=== PATIENT | female | born 1980 | race Caucasian/White ===

== ENCOUNTER → 2016-09-11 | Outpatient (REF) | payer OTHER | LOC: M SFHCPLAZ 11:50 | PROVIDERS: ATTEND Family Medicine | DX: D22.9 Melanocytic nevi, unspecified (principal) ==

== ENCOUNTER → 2016-09-17 | Outpatient (CLI) | payer OTHER ==
--- NOTE | 2016-09-17 18:30 | REP ---
MRI BRAIN WITHOUT CONTRAST: HISTORY: Left side headache. There are no areas of abnormal signal intensity in the brain. There is no intraparenchymal hemorrhage, infarct, mass or midline shift. The ventricular system is normal in appearance. A tito cisterna magna is present. There is no extracerebral collection. Mucosal thickening is present in the ethmoid and left sphenoid sinuses. IMPRESSION: There is no intracranial lesion. Signed by Patel Dominguez MD 09/17/2016 06:35 P
== END ==
LOC: M RAD 14:09
PROVIDERS: ATTEND Nurse Practitioner Family
DX: R51 Headache (principal)

== ENCOUNTER → 2016-12-31 | Outpatient (CLI) | payer OTHER ==
[2016-12-31 18:12] LABS: BASO % 0.3 % (0.0-1.0); EOS # 0.1 K/mm3 (0.0-0.50); EOS % 0.8 % (0.0-3.0); LARGE UNSTAINED CELL # 0.1 K/mm3 (0.0-0.4); LARGE UNSTAINED CELL % 1.6 % (0.0-4.0); LYMPH # 3.5 K/mm3 (1.5-4.5); LYMPH % 44.3 % (24.0-44.0); MEAN CORPUSCULAR HEMOGLOBIN 29.9 pg (27.0-33.0); MEAN CORPUSCULAR HGB CONC 32.7 g/dl (32.0-36.5); MEAN CORPUSCULAR VOLUME 91.4 fl (80.0-96.0); MONO # 0.3 K/mm3 (0.0-0.8); MONO % 4.2 % (0.0-5.0); NEUTROPHILS # 3.9 K/mm3 (1.8-7.7); NEUTROPHILS % 48.8 % (36.0-66.0); PLATELET COUNT, AUTOMATED 282 k/mm3 (150-450); RED CELL DISTRIBUTION WIDTH 12.4 % (11.5-14.5); WHITE BLOOD COUNT 7.9 K/mm3 (4.0-10.0)
[2017-01-01 11:26] LABS: HBsAg Prenatal NEGATIVE (NEGATIVE)
== END ==
LOC: M LAB 15:05
PROVIDERS: ATTEND Obstetrics & Gynecology
DX: Z36 Encounter for antenatal screening of mother (principal); Z3A.00 Weeks of gestation of pregnancy not specified

== ENCOUNTER → 2017-03-26 | Outpatient (CLI) | payer OTHER ==
--- NOTE | 2017-03-26 22:12 | REP ---
Complete OB ultrasound: 03/26/2017. Clinical history: Supervision of , second trimester anatomy screen. There are no prior studies for this . There is a single intrauterine gestation in variable position with a posterior grade 0 placenta without previa abruption. Visually, the amniotic fluid volume is normal. Cervix 4.1 cm long and closed. biometry: BPD 4.3 cm = 19 weeks HC 15.9 cm = 18 weeks 5 days AC 13.6 cm = 19 weeks FL 3 cm = 19 weeks 3 days HL 3.1 cm = 20 weeks 2 days Average ultrasound age by today's study 19 weeks 2 days, EDC 08/18/2017. By LMP 18 weeks 6 days, EDC 08/21/2017. Measurement ratios were all normal. Estimated weight 277 grams or 9 ounces is 56th percentile for dating based on LMP. This is normal. anatomy screen shows heart rate 139 and regular. Cranial vault, choroid plexus, lateral ventricles, thalami, cavum septum pellucidum, cerebellum and cisterna magna were all unremarkable. Facial profile views, lungs, four-chamber heart view, ventricular outflow tracts and a three-vessel cord were not well evaluated due to position. diaphragm, left-sided stomach bubble and cord insertion were adequately visualized. The kidneys and bladder, transverse and longitudinal views of the spine and the upper lower extremities were all seen. Impression: 1. Single intrauterine gestation in variable position with a posterior grade zero placenta without previa or abruption, visually normal amniotic fluid volume and a 4.1 cm long closed cervix. 2. Average ultrasound age 19 weeks 2 days, by LMP 18 weeks 6 days with EDC 08/21/2017 based on that study. Estimated weight is 56th percentile for LMP and this is normal interval growth. All measurement ratios are normal. 3. No anomalies visible, but the face and profile views, lungs, four-chamber heart, ventricular outflow tracts, and three-vessel cord are not optimally visualized and should be rechecked later in the second trimester. Signed by Efra Angelo MD 03/26/2017 10:39 P
== END ==
LOC: M RAD 16:20
PROVIDERS: ATTEND Obstetrics & Gynecology
DX: Z36 Encounter for antenatal screening of mother (principal); Z3A.19 19 weeks gestation of pregnancy

== ENCOUNTER → 2017-04-12 | Outpatient (CLI) | payer OTHER ==
--- NOTE | 2017-04-12 17:56 | REP ---
OB ULTRASOUND: Real-time sonographic evaluation of the gravid uterus is performed. There is a single living intrauterine gestation with estimated gestational age 21 weeks 2 days with EDC 08/21/2017. Today's measurements indicate appropriate growth. BPD 51 mm = 21 weeks 3 days, at the 55th percentile. HC 188 mm = 21 weeks 0 days, at the 43rd percentile. AC 166 mm = 21 weeks 4 day, at the 57th percentile. Femur length 39 mm = 22 weeks 3 days, at the 79th percentile. HC/AC ratio 1.13 within normal range. Estimated weight 259 grams at the 66th. Cervix is closed measures 4.8 cm in length. heart rate 140 beats per minute. SEEN/GROSSLY UNREMARKABLE Lateral ventricles Yes Posterior fossa Yes Upper lip Yes Four-chamber heart Yes LVOT Yes RVOT Yes Stomach Yes Cord insertion Yes Three vessel cord Yes Kidneys Yes Bladder Yes Spine Yes position: Breach Placenta: Posterior and grade 0 with no previa or abruption. Amniotic fluid: Within normal limits. Signed by Calos Redmond MD 04/13/2017 04:37 P
== END ==
LOC: M RAD 15:41
PROVIDERS: ATTEND Obstetrics & Gynecology
DX: Z36 Encounter for antenatal screening of mother (principal); O32.1XX0 Maternal care for breech presentation, not applicable or unspecified; Z3A.21 21 weeks gestation of pregnancy

== ENCOUNTER → 2017-05-27 | Outpatient (CLI) | payer OTHER ==
[2017-05-27 15:30] LABS: BASO % 0.1 % (0.0-1.0); EOS # 0.1 10^3/uL (0.0-0.50); EOS % 0.9 % (0.0-3.0); IMMATURE GRANULOCYTE % 0.8 % (0-0); LYMPH # 2.4 10^3/uL (1.5-4.5); LYMPH % 23.8 % (24.0-44.0); MEAN CORPUSCULAR HEMOGLOBIN 28.5 pg (27.0-33.0); MEAN CORPUSCULAR HGB CONC 32.4 g/dl (32.0-36.5); MEAN CORPUSCULAR VOLUME 87.9 fl (80.0-96.0); MONO # 0.3 10^3/uL (0.0-0.8); MONO % 3.3 % (0.0-5.0); NEUTROPHILS # 7.3 10^3/uL (1.8-7.7); NEUTROPHILS % 71.1 % (36.0-66.0); PLATELET COUNT, AUTOMATED 230 10^3/uL (150-450); RED CELL DISTRIBUTION WIDTH 13.2 % (11.5-14.5); WHITE BLOOD COUNT 10.2 10^3/uL (4.0-10.0)
== END ==
LOC: M LAB 13:43
PROVIDERS: ATTEND Advanced Practice Midwife
DX: Z36.89 Encounter for other specified antenatal screening (principal); Z3A.00 Weeks of gestation of pregnancy not specified
CPT/HCPCS: 36415; 82950; 85025; 86850; 86900; 86901; J2790

== ENCOUNTER → 2017-07-20 | Outpatient (REF) | payer OTHER | LOC: M LAB REF 17:17 | PROVIDERS: ATTEND Specialist | DX: Z34.83 Encounter for supervision of other normal pregnancy, third trimester (principal) ==

== ENCOUNTER → 2017-07-29 | Outpatient (CLI) | payer OTHER | LOC: M SMT 14:25 | PROVIDERS: ATTEND Advanced Practice Midwife | DX: Z34.83 Encounter for supervision of other normal pregnancy, third trimester (principal) ==

== ENCOUNTER 2017-08-20 09:56 | Inpatient (IN) | payer OTHER ==
[2017-08-20] MEDS ORDERED: LR 1,000 ML IV (10:28)
[2017-08-20] MEDS: LACTATED RINGER'S 1000 ML IV (10:28)
[2017-08-20] MEDS: PENICILLIN G POTASSIUM IV 5 MU in D5W MINI-BAG PLUS 100 ML IV (12:38)
[2017-08-20 12:49] LABS: HEMATOCRIT 36.4 % (36.0-47.0); MEAN CORPUSCULAR HEMOGLOBIN 28.3 pg (27.0-33.0); MEAN CORPUSCULAR VOLUME 85.8 fl (80.0-96.0); PLATELET COUNT, AUTOMATED 217 10^3/uL (150-450); RED BLOOD COUNT 4.24 10^6/uL (4.00-5.40); RED CELL DISTRIBUTION WIDTH 15.2 % (11.5-14.5); WHITE BLOOD COUNT 12.7 10^3/uL (4.0-10.0)
[2017-08-20 13:15] LABS: AMPHETAMINES URINE REFLEX NEGATIVE (NEGATIVE); BARBITURATES URINE REFLEX NEGATIVE (NEGATIVE); BENZODIAZEPINES URINE REFLEX NEGATIVE (NEGATIVE); CANNABINOIDS URINE REFLEX NEGATIVE (NEGATIVE); COCAINE METABOLITE URINE REFLE NEGATIVE (NEGATIVE); METHADONE URINE REFLEX NEGATIVE (NEGATIVE); OPIATES URINE REFLEX NEGATIVE (NEGATIVE); PHENCYCLIDINE URINE REFLEX NEGATIVE (NEGATIVE)
[2017-08-20] MEDS: PENICILLIN G POTASSIUM IV 2.5 MU in APPROPRIATE DILUENT 1 EA IV ×2 (17:45→21:14)
[2017-08-20] MEDS: OXYTOCIN DRIP 30 UNITS in APPROPRIATE DILUENT 1 EA IV (20:04)
[2017-08-20] MEDS ORDERED: FENTANYL 2MCG/ML ROPIVACAINE 0.2% IN 0.9% NACL 200ML IVBAG As Ordered (20:10)
[2017-08-20] MEDS ORDERED: ONDANSETRON 4MG/2ML VIAL (J2405) IV (20:30)
[2017-08-20] MEDS ORDERED: NALOXONE INJ 0.4 MG/1 ML VIAL (J2310) IV (20:30)
[2017-08-20] MEDS ORDERED: EPIDURAL COMMENT XX (20:30)
[2017-08-20] MEDS ORDERED: diphenhydrAMINE INJ 50MG/ML VIAL (J1200) IV (20:30)
[2017-08-20] MEDS ORDERED: REFRIGERATOR IV KEYS XX (20:30)
[2017-08-20] MEDS ORDERED: FENTANYL/ROPIVACAINE/NACL BAG 200 ML EPIDURAL (20:30)
[2017-08-20] MEDS ORDERED: LACTATED RINGER'S 1000 ML IV (20:30)
[2017-08-20] MEDS ORDERED: ePHEDrine SULFATE 25 MG/5 ML(5MG/ML) SYRINGE IV (20:30)
[2017-08-20] MEDS ORDERED: EPIDURAL/PCA KEYS XX (20:30)
[2017-08-21] MEDS ORDERED: MEASLES,MUMPS,RUBELLA VACCINE INJ (MMR-II) (90707) SC
[2017-08-21] MEDS ORDERED: DOCUSATE SODIUM 100 MG CAP PO
[2017-08-21] MEDS ORDERED: MOM 30ML SUSPENSION UDC PO
[2017-08-21] MEDS ORDERED: DIBUCAINE 1% OINTMENT 30GM TOP
[2017-08-21] MEDS ORDERED: ANUSOL HC CREAM 30GM TOP
[2017-08-21] MEDS ORDERED: METHYLERGONOVINE MALEATE 0.2 MG TAB PO
[2017-08-21] MEDS: IBUPROFEN 800 MG TAB PO (02:13)
[2017-08-21] MEDS: PRENATAL VITAMINS CHEWABLE TABLET PO (07:51)
[2017-08-21] MEDS: ACETAMINOPHEN 500 MG TAB PO (07:52)
[2017-08-21 19:12] LABS: FETAL SCREEN PROF. 1 1
[2017-08-22] MEDS: RHOGAM 300 MCG (1500 IU) INJ (J2790) IM (07:26)
[2017-08-22] MEDS: PRENATAL VITAMINS CHEWABLE TABLET PO (08:27)
== END 2017-08-22 15:35 | disposition home or self-care (01) | DRG 560 ==
LOC: M LDO 09:56 → M OBS 08-21 01:42 → M LDI 10:22
PROVIDERS: Advanced Practice Midwife
PROC: 10E0XZZ Delivery of Products of Conception, External Approach (ICD-10-PCS; principal; 2017-08-20)
PROC: 0HQ9XZZ Repair Perineum Skin, External Approach (ICD-10-PCS; 2017-08-20)
PROC: 10907ZC Drainage of Amniotic Fluid, Therapeutic from Products of Conception, Via Natural or Artificial Opening (ICD-10-PCS; 2017-08-20)
DX: O99.824 Streptococcus B carrier state complicating childbirth (principal); Z3A.39 39 weeks gestation of pregnancy; O32.6XX0 Maternal care for compound presentation, not applicable or unspecified; O70.0 First degree perineal laceration during delivery; Z37.0 Single live birth

== ENCOUNTER → 2018-07-27 | Outpatient (REF) | payer OTHER ==
[2018-07-27 18:26] LABS: APPEARANCE, URINE CLEAR (CLEAR); BACTERIA, URINE AUTO NEGATIVE (NEGATIVE); BILIRUBIN, URINE AUTO NEGATIVE (NEGATIVE); BLOOD, URINE BLOOD NEGATIVE (NEGATIVE); COLOR, URINE YELLOW (YELLOW); GLUCOSE, URINE (UA) AUTO NEGATIVE (NEGATIVE); KETONE, URINE AUTO NEGATIVE (NEGATIVE); LEUKOCYTE ESTERASE, URINE AUTO NEGATIVE (NEGATIVE); MUCUS, URINE SMALL (NEGATIVE); NITRITE, URINE AUTO NEGATIVE (NEGATIVE); PROTEIN, URINE AUTO NEGATIVE (NEGATIVE); RBC, URINE AUTO 2 /HPF (0-3); SPECIFIC GRAVITY URINE AUTO 1.015 (1.002-1.035); SQUAMOUS EPITHELIAL CELL UR AU 0 /HPF (0-6); UROBILINOGEN, URINE AUTO 0.2 mg/dL (0.0-2.0); WBC, URINE AUTO 1 /HPF (0-3)
== END ==
LOC: M SFHCPLAZ 17:20
DX: N39.0 Urinary tract infection, site not specified (principal)
CPT/HCPCS: 81001

== ENCOUNTER → 2018-10-06 | Outpatient (CLI) | payer OTHER ==
[~2018-10-06] MED LIST: CALTAB PO; IBUP-1114 PO; MAPA500T2 PO; PRENTAB9 PO; VALT500T PO
[2018-10-06 15:52] LABS: HEMOGLOBIN 12.8 g/dl (12.0-15.5); MEAN CORPUSCULAR HGB CONC 32.8 g/dl (32.0-36.5); MEAN CORPUSCULAR VOLUME 88.4 fl (80.0-96.0); PLATELET COUNT, AUTOMATED 258 10^3/uL (150-450); RED BLOOD COUNT 4.41 10^6/uL (4.00-5.40); WHITE BLOOD COUNT 7.7 10^3/uL (4.0-10.0)
[2018-10-06 16:33] LABS: ALT/SGPT 17 U/L (12-78); BILIRUBIN,TOTAL 0.3 MG/DL (0.2-1.0); BLOOD UREA NITROGEN 13 MG/DL (7-18); CALCIUM LEVEL 8.4 MG/DL (8.5-10.1); CARBON DIOXIDE LEVEL 26 MEQ/L (21-32); CHLORIDE LEVEL 105 MEQ/L (98-107); CHOLESTEROL LEVEL 185 MG/DL (<200); CHOLESTEROL RISK RATIO 4.868 (<5); CREATININE FOR GFR 0.67 MG/DL (0.55-1.30); FREE T4 1.03 NG/DL (0.76-1.46); GLOMERULAR FILTRATION RATE > 60.0 (>60); GLUCOSE, FASTING 88 MG/DL (70-100); HDL CHOLESTEROL 38 MG/DL (>40); LDL CHOLESTEROL 107 MG/DL (<100); NON-HDL-C 147 MG/DL; POTASSIUM SERUM 4.1 MEQ/L (3.5-5.1); SODIUM LEVEL 138 MEQ/L (136-145); TOTAL PROTEIN 7.1 GM/DL (6.4-8.2); TRIGLYCERIDES LEVEL 200 MG/DL (<150)
== END ==
LOC: M LAB 14:33
PROVIDERS: ATTEND Physician Assistant
DX: F32.9 Major depressive disorder, single episode, unspecified (principal); E78.5 Hyperlipidemia, unspecified

== ENCOUNTER → 2019-10-05 | Outpatient (CLI) | payer OTHER ==
[2019-10-05 18:55] LABS: HCG, SERUM QUALITATIVE NEGATIVE (NEGATIVE)
== END ==
LOC: M PLALAB 15:22
PROVIDERS: ATTEND Advanced Practice Midwife
DX: N91.2 Amenorrhea, unspecified (principal)

== ENCOUNTER → 2019-10-26 | Outpatient (CLI) | payer OTHER ==
--- NOTE | 2019-10-26 17:13 | REP ---
Focused left breast sonography: History: Area of breast thickening 1 x 3 cm 6 o'clock position just outside areola on clinician breast exam. No comparison breast imaging. Findings: The left breast is scanned inferiorly in the periareolar region from 4 o'clock to 7 o'clock. Heterogeneous fibroglandular background echotexture is seen. No cyst, mass, acoustic shadowing or architectural distortion is seen. Impression: BIRADS category 1 findings. Clinical follow-up is advised. This patient's estimated Tyrer-Cuzick lifetime risk assessment for the breast cancer is 11.6 %.
== END ==
LOC: M WHC 13:03
PROVIDERS: ATTEND Advanced Practice Midwife
DX: N60.12 Diffuse cystic mastopathy of left breast (principal)

== ENCOUNTER 2020-04-17 17:37 | Emergency (ER) | payer OTHER ==
[~2020-04-17] VITALS: Ht 162.6 cm; Wt 114.2 kg
[2020-04-17 17:38] VITALS: BP 175/94
[2020-04-17 19:01] LABS: BASO % 0.3 % (0.0-1.0); EOS % 0.6 % (0.0-3.0); HEMATOCRIT 40.5 % (36.0-47.0); HEMOGLOBIN 13.3 g/dl (12.0-15.5); LYMPH # 1.6 10^3/uL (1.5-5.0); MEAN CORPUSCULAR HGB CONC 32.8 g/dl (32.0-36.5); MEAN CORPUSCULAR VOLUME 91.2 fl (80.0-96.0); MONO # 0.3 10^3/uL (0.0-0.8); MONO % 4.6 % (0.0-5.0); NEUTROPHILS # 4.5 10^3/uL (1.5-8.5); PLATELET COUNT, AUTOMATED 239 10^3/uL (150-450); RED BLOOD COUNT 4.44 10^6/uL (4.00-5.40); WHITE BLOOD COUNT 6.5 10^3/uL (4.0-10.0)
[2020-04-17 19:12] LABS: BLOOD UREA NITROGEN 10 MG/DL (7-18); C REACTIVE PROTEIN QUANTITATIV 0.52 MG/DL (0.00-0.30); CALCIUM LEVEL 8.6 MG/DL (8.5-10.1); CARBON DIOXIDE LEVEL 31 MEQ/L (21-32); CHLORIDE LEVEL 108 MEQ/L (98-107); CREATININE FOR GFR 0.74 MG/DL (0.55-1.30); GLOMERULAR FILTRATION RATE > 60.0 (>60); GLUCOSE, FASTING 109 MG/DL (70-100); POTASSIUM SERUM 4.3 MEQ/L (3.5-5.1); SODIUM LEVEL 141 MEQ/L (136-145)
[2020-04-17 19:48] LABS: TROPONIN I < 0.02 NG/ML (< 0.10)
[2020-04-19 17:08] LABS: Lyme Disease IgG/IgM Antibodie <0.91 ISR (0.00-0.90); Lyme Disease IgM Ab Quantitati <0.80 index (0.00-0.79)
--- NOTE | 2020-05-01 14:56 | ECGEPIP ---
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
== END 2020-04-17 20:45 | disposition home or self-care (01) ==
LOC: M ED 17:37
DX: R07.89 Other chest pain (principal); R06.02 Shortness of breath; R53.1 Weakness; D17.22 Benign lipomatous neoplasm of skin and subcutaneous tissue of left arm; D17.79 Benign lipomatous neoplasm of other sites; E66.9 Obesity, unspecified; Z68.41 Body mass index [BMI] 40.0-44.9, adult; E28.2 Polycystic ovarian syndrome; F41.9 Anxiety disorder, unspecified; F32.9 Major depressive disorder, single episode, unspecified; M79.7 Fibromyalgia; E78.5 Hyperlipidemia, unspecified

== ENCOUNTER → 2020-12-26 | Outpatient (CLI) | payer OTHER ==
--- NOTE | 2020-12-26 16:49 | REPMRS ---
Patient History The patient states she has not had a clinical breast exam in over a year. No known family history of cancer. No Hormone Replacement Therapy Tomosynthesis is performed. Volpara breast density is B. [facility] lifetime risk of breast cancer 13.0%. Indicated problem(s): bilateral non-bloody discharge Bilateral lump or thickening. Moderna 11/27/20 L arm, 12/23/20 L arm. Patient states bilateral clear/milky discharge x 3 years, bilateral multiple palpable lumps. MRS history sheet signed. Diagnostic Bilateral Mammo: December 26, 2020 - Exam #: [id number] Bilateral CC and MLO view(s) were taken. Technologist: Anne Marie Westbrook, Technologist FINDINGS: There are scattered fibroglandular densities. There has been no change in the appearance of the mammogram from the prior studies. There is a mild amount of residual fibroglandular tissue which is fairly symmetric. There is no interval development of dominant mass, architectural distortion, or clustered microcalcification suggestive of malignancy. Assessment: BI-RADS/ACR category 1 mammogram. Negative Mammogram. Recommendation Routine screening mammogram in 1 year (for women over age 40). This mammogram was interpreted with the aid of an FDA-approved computer-aided dectection system. Electronically Signed By: Calos Redmond MD 12/26/20 [id number]
== END ==
LOC: M WHC 15:03
PROVIDERS: ATTEND Surgery
DX: N63.10 Unspecified lump in the right breast, unspecified quadrant (principal)
CPT/HCPCS: 77066; G0279

== ENCOUNTER 2021-02-28 05:45 | Emergency (ER) | payer OTHER ==
[~2021-02-28] VITALS: Ht 162.6 cm; Wt 114.1 kg
[2021-02-28 05:46] VITALS: BP 143/83
[2021-02-28] MEDS ORDERED: LIDOCAINE VISCOUS 2% SOLN 15ML UDC SSP ONE (06:20)
[2021-02-28] MEDS ORDERED: AUGMENTIN 875 MG TAB PO ONE (06:25)
[2021-02-28] MEDS ORDERED: PERCOCET 5MG/325MG TAB PO ONE (07:00)
[2021-02-28] MEDS ORDERED: PERI0.126 PO (07:09)
[2021-02-28] MEDS ORDERED: AUGM875T28 PO (07:10)
[2021-02-28] MEDS ORDERED: LIDO2SO PO ×2 (07:11→07:13)
[2021-02-28] MEDS ORDERED: PERC5TAB12 PO (07:20)
== END 2021-02-28 07:54 | disposition home or self-care (01) ==
LOC: M ED 05:45
DX: K02.9 Dental caries, unspecified (principal); K08.89 Other specified disorders of teeth and supporting structures; K04.7 Periapical abscess without sinus; Z79.899 Other long term (current) drug therapy

== ENCOUNTER → 2022-04-23 | Outpatient (CLI) | payer OTHER ==
[~2022-04-23] MED LIST changes: +AUGM875T28 PO; +LIDO2SO PO; +PERC5TAB12 PO; +PERI0.126 PO
[2022-04-23 17:47] LABS: BASO # 0.1 10^3/uL (0.0-0.2); BASO % 0.6 % (0.0-1.0); EOS # 0.2 10^3/uL (0.0-0.5); EOS % 2.5 % (0.0-3.0); HEMATOCRIT 42.1 % (36.0-47.0); HEMOGLOBIN 13.6 g/dl (12.0-15.5); LYMPH # 3.2 10^3/uL (1.5-5.0); LYMPH % 37.9 % (24.0-44.0); MEAN CORPUSCULAR HEMOGLOBIN 29.7 pg (27.0-33.0); MEAN CORPUSCULAR HGB CONC 32.3 g/dl (32.0-36.5); MEAN CORPUSCULAR VOLUME 91.9 fl (80.0-96.0); MONO # 0.5 10^3/uL (0.0-0.8); MONO % 5.6 % (2.0-8.0); NEUTROPHILS # 4.5 10^3/uL (1.5-8.5); PLATELET COUNT, AUTOMATED 283 10^3/uL (150-450); RED BLOOD COUNT 4.58 10^6/uL (4.00-5.40); WHITE BLOOD COUNT 8.4 10^3/uL (4.0-10.0)
[2022-04-23 18:57] LABS: ALBUMIN 3.6 GM/DL (3.2-5.2); ALT/SGPT 25 U/L (12-78); BILIRUBIN,TOTAL 0.3 MG/DL (0.2-1.0); BLOOD UREA NITROGEN 16 MG/DL (7-18); CALCIUM LEVEL 9.1 MG/DL (8.5-10.1); CARBON DIOXIDE LEVEL 29 MEQ/L (21-32); CHLORIDE LEVEL 106 MEQ/L (98-107); CHOLESTEROL LEVEL 183 MG/DL (<200); CHOLESTEROL RISK RATIO 4.575 (<5); GLOMERULAR FILTRATION RATE > 60.0 (>60); GLUCOSE, FASTING 93 MG/DL (70-100); HDL CHOLESTEROL 40 MG/DL (>40); LDL CHOLESTEROL 111 MG/DL (<100); NON-HDL-C 143 MG/DL; POTASSIUM SERUM 4.5 MEQ/L (3.5-5.1); SODIUM LEVEL 140 MEQ/L (136-145); TOTAL PROTEIN 6.7 GM/DL (6.4-8.2); TRIGLYCERIDES LEVEL 158 MG/DL (<150)
[2022-04-23 19:27] LABS: HEMOGLOBIN A1c 5.3 %
== END ==
LOC: M LAB 16:40
PROVIDERS: ATTEND Nurse Practitioner Family
DX: Z00.00 Encounter for general adult medical examination without abnormal findings (principal); E28.2 Polycystic ovarian syndrome; E78.5 Hyperlipidemia, unspecified

== ENCOUNTER → 2022-09-16 | Outpatient (REF) | payer OTHER | LOC: M SFHCDERM 17:09 | PROVIDERS: ATTEND Physician Assistant | DX: D22.61 Melanocytic nevi of right upper limb, including shoulder (principal); D22.5 Melanocytic nevi of trunk ==

== ENCOUNTER 2022-11-12 10:25 | Emergency (ER) | payer OTHER ==
[~2022-11-12] VITALS: Ht 162.6 cm; Wt 93.2 kg
[2022-11-12 11:49] LABS: BASO # 0.1 10^3/uL (0.0-0.2); BASO % 0.6 % (0.0-1.0); EOS # 0.1 10^3/uL (0.0-0.5); EOS % 1.3 % (0.0-3.0); HEMATOCRIT 41.3 % (36.0-47.0); HEMOGLOBIN 13.7 g/dl (12.0-15.5); LYMPH # 3.5 10^3/uL (1.5-5.0); LYMPH % 38.8 % (24.0-44.0); MEAN CORPUSCULAR HEMOGLOBIN 29.7 pg (27.0-33.0); MEAN CORPUSCULAR HGB CONC 33.2 g/dl (32.0-36.5); MEAN CORPUSCULAR VOLUME 89.6 fl (80.0-96.0); MONO # 0.5 10^3/uL (0.0-0.8); MONO % 5.9 % (2.0-8.0); NEUTROPHILS # 4.8 10^3/uL (1.5-8.5); NEUTROPHILS % 53.1 % (36.0-66.0); PLATELET COUNT, AUTOMATED 272 10^3/uL (150-450); RED BLOOD COUNT 4.61 10^6/uL (4.00-5.40)
[2022-11-12 12:09] LABS: HCG, SERUM QUALITATIVE NEGATIVE (NEGATIVE)
[2022-11-12 12:11] LABS: ALBUMIN 3.8 G/DL (3.2-5.2); ALKALINE PHOSPHATASE 50 U/L (46-116); ALT/SGPT 15 U/L (7.0-40); AST/SGOT 11 U/L (<34); BILIRUBIN,DIRECT 0.1 MG/DL (<0.4); BILIRUBIN,TOTAL 0.6 MG/DL (0.3-1.2); BLOOD UREA NITROGEN 10 MG/DL (9-23); CARBON DIOXIDE LEVEL 26 MMOL/L (20-31); CHLORIDE LEVEL 103 MMOL/L (98-107); CREATININE FOR GFR 0.71 MG/DL (0.55-1.30); GLOMERULAR FILTRATION RATE > 60.0 (>58); GLUCOSE, FASTING 89 MG/DL (60-100); POTASSIUM SERUM 3.9 MMOL/L (3.5-5.1); SODIUM LEVEL 138 MMOL/L (136-145); TOTAL PROTEIN 6.5 G/DL (5.7-8.2)
[2022-11-12] MEDS ORDERED: KETOROLAC 30 MG/ML 1ML VIAL IV ONE (14:55)
[2022-11-12 17:29] VITALS: BP 143/73
== END 2022-11-12 17:39 | disposition left against medical advice (07) ==
LOC: M ED 10:25
DX: R10.31 Right lower quadrant pain (principal); E28.2 Polycystic ovarian syndrome

== ENCOUNTER 2022-12-16 17:31 | Emergency (ER) | payer OTHER ==
[~2022-12-16] VITALS: Ht 162.6 cm; Wt 91.6 kg
[~2022-12-16 17:31] MED LIST changes: +LIDO15SO2 PO; -LIDO2SO PO
[2022-12-16 17:34] VITALS: BP 131/61
[2022-12-16 18:43] LABS: BASO % 0.4 % (0.0-1.0); EOS # 0.1 10^3/uL (0.0-0.5); EOS % 1.6 % (0.0-3.0); HEMATOCRIT 41.3 % (36.0-47.0); HEMOGLOBIN 13.4 g/dl (12.0-15.5); LYMPH % 35.5 % (24.0-44.0); MEAN CORPUSCULAR HEMOGLOBIN 29.5 pg (27.0-33.0); MEAN CORPUSCULAR HGB CONC 32.4 g/dl (32.0-36.5); MEAN CORPUSCULAR VOLUME 90.8 fl (80.0-96.0); MONO # 0.5 10^3/uL (0.0-0.8); MONO % 5.6 % (2.0-8.0); NEUTROPHILS # 4.7 10^3/uL (1.5-8.5); NEUTROPHILS % 56.5 % (36.0-66.0); PLATELET COUNT, AUTOMATED 239 10^3/uL (150-450); RED BLOOD COUNT 4.55 10^6/uL (4.00-5.40); WHITE BLOOD COUNT 8.3 10^3/uL (4.0-10.0)
[2022-12-16 19:03] LABS: HCG, SERUM QUALITATIVE NEGATIVE (NEGATIVE); LIPASE 34 U/L (12-53)
[2022-12-16 19:05] LABS: ALBUMIN 3.7 G/DL (3.2-5.2); ALKALINE PHOSPHATASE 57 U/L (46-116); ALT/SGPT 18 U/L (7.0-40); AST/SGOT 13 U/L (<34); BILIRUBIN,DIRECT < 0.1 MG/DL (<0.4); BILIRUBIN,TOTAL 0.3 MG/DL (0.3-1.2); BLOOD UREA NITROGEN 11 MG/DL (9-23); CALCIUM LEVEL 9.4 MG/DL (8.5-10.1); CARBON DIOXIDE LEVEL 28 MMOL/L (20-31); CHLORIDE LEVEL 105 MMOL/L (98-107); CREATININE FOR GFR 0.67 MG/DL (0.55-1.30); GLOMERULAR FILTRATION RATE > 60.0 (>58); GLUCOSE, FASTING 105 MG/DL (60-100); POTASSIUM SERUM 3.5 MMOL/L (3.5-5.1); SODIUM LEVEL 139 MMOL/L (136-145); TOTAL PROTEIN 6.6 G/DL (5.7-8.2)
[2022-12-16] MEDS ORDERED: ISOVUE-370 76% 100ML VIAL As Ordered ONE (21:25)
[2022-12-16 21:35] LABS: BASO # 0.1 10^3/uL (0.0-0.2); BASO % 0.6 % (0.0-1.0); EOS # 0.1 10^3/uL (0.0-0.5); EOS % 1.7 % (0.0-3.0); HEMOGLOBIN 13.7 g/dl (12.0-15.5); LYMPH # 2.8 10^3/uL (1.5-5.0); LYMPH % 36.4 % (24.0-44.0); MEAN CORPUSCULAR HEMOGLOBIN 29.7 pg (27.0-33.0); MEAN CORPUSCULAR HGB CONC 32.6 g/dl (32.0-36.5); MEAN CORPUSCULAR VOLUME 91.1 fl (80.0-96.0); MONO # 0.5 10^3/uL (0.0-0.8); MONO % 6.7 % (2.0-8.0); NEUTROPHILS # 4.2 10^3/uL (1.5-8.5); NEUTROPHILS % 54.3 % (36.0-66.0); PLATELET COUNT, AUTOMATED 241 10^3/uL (150-450); RED BLOOD COUNT 4.61 10^6/uL (4.00-5.40); WHITE BLOOD COUNT 7.7 10^3/uL (4.0-10.0)
[2022-12-16 21:37] LABS: URINE PREG TEST NEGATIVE (NEGATIVE)
[2022-12-16 21:51] LABS: LIPASE 37 U/L (12-53)
[2022-12-16 21:54] LABS: ALBUMIN 3.7 G/DL (3.2-5.2); ALKALINE PHOSPHATASE 67 U/L (46-116); ALT/SGPT 21 U/L (7.0-40); AST/SGOT 13 U/L (<34); BILIRUBIN,DIRECT < 0.1 MG/DL (<0.4); BILIRUBIN,TOTAL 0.2 MG/DL (0.3-1.2); TOTAL PROTEIN 6.5 G/DL (5.7-8.2)
[2022-12-17] MEDS ORDERED: IBUP-1022 PO (00:51)
== END 2022-12-17 01:35 | disposition home or self-care (01) ==
LOC: M ED 17:31
DX: N83.00 Follicular cyst of ovary, unspecified side (principal); R10.9 Unspecified abdominal pain; R51.9 Headache, unspecified; R20.2 Paresthesia of skin; M79.7 Fibromyalgia
CPT/HCPCS: 36415; 70450; 74177; 76856; 80047; 80048; 80076; 81001; 83690; 84703; 85025; 93976; 99284; Q9967

== ENCOUNTER → 2023-02-15 | Outpatient (CLI) | payer OTHER ==
[~2023-02-15] MED LIST changes: +IBUP-1022 PO
[2023-02-15 18:34] LABS: BASO # 0.1 10^3/uL (0.0-0.2); BASO % 0.7 % (0.0-1.0); EOS # 0.1 10^3/uL (0.0-0.5); EOS % 1.2 % (0.0-3.0); HEMATOCRIT 41.8 % (36.0-47.0); HEMOGLOBIN 13.6 g/dl (12.0-15.5); LYMPH # 2.9 10^3/uL (1.5-5.0); LYMPH % 40.2 % (24.0-44.0); MEAN CORPUSCULAR HEMOGLOBIN 30.1 pg (27.0-33.0); MEAN CORPUSCULAR HGB CONC 32.5 g/dl (32.0-36.5); MEAN CORPUSCULAR VOLUME 92.5 fl (80.0-96.0); MONO # 0.4 10^3/uL (0.0-0.8); MONO % 5.2 % (2.0-8.0); NEUTROPHILS # 3.8 10^3/uL (1.5-8.5); NEUTROPHILS % 52.4 % (36.0-66.0); PLATELET COUNT, AUTOMATED 259 10^3/uL (150-450); RED BLOOD COUNT 4.52 10^6/uL (4.00-5.40); WHITE BLOOD COUNT 7.2 10^3/uL (4.0-10.0)
[2023-02-15 19:01] LABS: ALBUMIN 3.9 G/DL (3.2-5.2); ALKALINE PHOSPHATASE 55 U/L (46-116); ALT/SGPT 21 U/L (7.0-40); AST/SGOT 10 U/L (<34); BILIRUBIN,TOTAL 0.5 MG/DL (0.3-1.2); BLOOD UREA NITROGEN 18 MG/DL (9-23); CALCIUM LEVEL 8.8 MG/DL (8.5-10.1); CARBON DIOXIDE LEVEL 28 MMOL/L (20-31); CHLORIDE LEVEL 102 MMOL/L (98-107); CK-MB VALUE MASS < 1.0 NG/ML (<3.6); CPK CREATINE PHOSPHOKINASE 42 U/L (34-145); CREATININE FOR GFR 0.75 MG/DL (0.55-1.30); GLOMERULAR FILTRATION RATE > 60.0 (>58); GLUCOSE, FASTING 77 MG/DL (60-100); MB/CK RELATIVE INDEX 2.38 (< OR =4); POTASSIUM SERUM 3.9 MMOL/L (3.5-5.1); SODIUM LEVEL 138 MMOL/L (136-145); THYROID STIMULATING HORMONE 1.815 uIU/ML (0.55-4.78); TOTAL PROTEIN 6.7 G/DL (5.7-8.2)
== END ==
LOC: M RAD 16:24
PROVIDERS: ATTEND Nurse Practitioner Family
DX: M54.12 Radiculopathy, cervical region (principal)

== ENCOUNTER → 2023-02-17 | Outpatient (CLI) | payer OTHER | LOC: M RAD 15:47 | PROVIDERS: ATTEND Nurse Practitioner Family | DX: R42 Dizziness and giddiness (principal) ==

== ENCOUNTER → 2023-06-17 | Outpatient (CLI) | payer OTHER | LOC: M WHC 13:32 | PROVIDERS: ATTEND Advanced Practice Midwife | DX: Z12.31 Encounter for screening mammogram for malignant neoplasm of breast (principal) ==

== ENCOUNTER → 2023-06-17 | Outpatient (REF) | payer OTHER | LOC: M PLALAB 15:15 | PROVIDERS: ATTEND Advanced Practice Midwife | DX: Z12.4 Encounter for screening for malignant neoplasm of cervix (principal) ==

== ENCOUNTER → 2023-09-29 | Outpatient (CLI) | payer OTHER ==
[2023-09-29 15:39] LABS: BASO # 0.1 10^3/uL (0.0-0.2); BASO % 0.5 % (0.0-1.0); EOS # 0.1 10^3/uL (0.0-0.5); EOS % 1.3 % (0.0-3.0); HEMATOCRIT 41.1 % (36.0-47.0); HEMOGLOBIN 13.2 g/dl (12.0-15.5); LYMPH # 3.2 10^3/uL (1.5-5.0); LYMPH % 34.1 % (24.0-44.0); MEAN CORPUSCULAR HEMOGLOBIN 30.1 pg (27.0-33.0); MEAN CORPUSCULAR HGB CONC 32.1 g/dl (32.0-36.5); MEAN CORPUSCULAR VOLUME 93.8 fl (80.0-96.0); MONO # 0.7 10^3/uL (0.0-0.8); MONO % 7.5 % (2.0-8.0); NEUTROPHILS # 5.3 10^3/uL (1.5-8.5); NEUTROPHILS % 56.3 % (36.0-66.0); PLATELET COUNT, AUTOMATED 266 10^3/uL (150-450); RED BLOOD COUNT 4.38 10^6/uL (4.00-5.40); WHITE BLOOD COUNT 9.4 10^3/uL (4.0-10.0)
[2023-09-29 16:10] LABS: ALBUMIN 3.8 G/DL (3.2-5.2); ALKALINE PHOSPHATASE 63 U/L (46-116); ALT/SGPT 16 U/L (7.0-40); AST/SGOT 11 U/L (<34); BILIRUBIN,TOTAL 0.3 MG/DL (0.3-1.2); BLOOD UREA NITROGEN 21 MG/DL (9-23); CARBON DIOXIDE LEVEL 29 MMOL/L (20-31); CHLORIDE LEVEL 106 MMOL/L (98-107); CHOLESTEROL LEVEL 200 MG/DL (<200); CHOLESTEROL RISK RATIO 4.34 (<5); CK-MB VALUE MASS < 1.0 NG/ML (<3.6); CREATININE FOR GFR 0.78 MG/DL (0.55-1.30); GLOMERULAR FILTRATION RATE > 60.0 (>58); GLUCOSE, FASTING 90 MG/DL (60-100); LDL CHOLESTEROL 114.6 MG/DL (<100); POTASSIUM SERUM 4.6 MMOL/L (3.5-5.1); SODIUM LEVEL 141 MMOL/L (136-145); THYROID STIMULATING HORMONE 2.326 uIU/ML (0.55-4.78); TOTAL PROTEIN 6.8 G/DL (5.7-8.2); TRIGLYCERIDES LEVEL 197 MG/DL (<150)
[2023-09-29 16:12] LABS: FREE T4 1.18 NG/DL (0.89-1.76)
[2023-09-29 16:49] LABS: HIV 1&2 SCREEN NEGATIVE (NEGATIVE)
[2023-09-29 16:51] LABS: CPK CREATINE PHOSPHOKINASE 94 U/L (34-145); MB/CK RELATIVE INDEX 1.06 (< OR =4); TOTAL 25(OH) VITAMIN D > 150.0 NG/ML (20.0-100.0)
[2023-09-29 20:14] LABS: CHLAMYDIA DNA AMPLIFICATION NEGATIVE (NEGATIVE); GC DNA AMPLIFICATION NEGATIVE (NEGATIVE)
== END ==
LOC: M PLALAB 12:13
PROVIDERS: ATTEND Nurse Practitioner Family
DX: Z11.3 Encounter for screening for infections with a predominantly sexual mode of transmission (principal)

== ENCOUNTER → 2023-11-24 | Outpatient (CLI) | payer OTHER ==
[~2023-11-24] MED LIST changes: -LIDO15SO2 PO; +LIDO15SO9 PO
[2023-11-24 18:43] LABS: HEPATITIS B SURFACE ANTIBODY NEGATIVE (POSITIVE)
[2023-11-24 19:08] LABS: HIV 1&2 SCREEN NEGATIVE (NEGATIVE)
[2023-11-24 19:16] LABS: HEPATITIS C VIRUS ABY INDEX < 0.02 INDEX (<0.8)
== END ==
LOC: M PLALAB 15:26
PROVIDERS: ATTEND Internal Medicine Infectious Disease
DX: Z20.6 Contact with and (suspected) exposure to human immunodeficiency virus [HIV] (principal); Z11.59 Encounter for screening for other viral diseases

== ENCOUNTER 2023-12-23 13:00 | Inpatient (IN) | payer MEDICAID, OTHER ==
[~2023-12-23] VITALS: Ht 163.8 cm; Wt 100.1 kg
[2023-12-23 14:09] LABS: HEMATOCRIT 41.4 % (36.0-47.0); HEMOGLOBIN 13.8 g/dl (12.0-15.5); MEAN CORPUSCULAR HEMOGLOBIN 30.6 pg (27.0-33.0); MEAN CORPUSCULAR HGB CONC 33.3 g/dl (32.0-36.5); MEAN CORPUSCULAR VOLUME 91.8 fl (80.0-96.0); PLATELET COUNT, AUTOMATED 271 10^3/uL (150-450); RED BLOOD COUNT 4.51 10^6/uL (4.00-5.40); WHITE BLOOD COUNT 10.3 10^3/uL (4.0-10.0)
[2023-12-23 14:38] LABS: AMPHETAMINES LEVEL URINE NEGATIVE (NEGATIVE); BARBITURATES URINE NEGATIVE (NEGATIVE); BENZODIAZEPINES URINE NEGATIVE (NEGATIVE); CANNABINOIDS URINE NEGATIVE (NEGATIVE); COCAINE METABOLITE URINE NEGATIVE (NEGATIVE); METHADONE URINE NEGATIVE (NEGATIVE); OPIATES URINE NEGATIVE (NEGATIVE); PHENCYCLIDINE URINE NEGATIVE (NEGATIVE)
[2023-12-23 14:41] LABS: ETHYL ALCOHOL (ETHANOL) < 0.003 % (0.000-0.010)
[2023-12-23 14:42] LABS: SALICYLATE LEVEL < 3.0 MG/DL (<30)
[2023-12-23 14:43] LABS: ALKALINE PHOSPHATASE 65 U/L (46-116); ALT/SGPT 20 U/L (7.0-40); AST/SGOT 14 U/L (<34); BILIRUBIN,DIRECT 0.1 MG/DL (<0.4); BILIRUBIN,TOTAL 0.4 MG/DL (0.3-1.2); BLOOD UREA NITROGEN 13 MG/DL (9-23); CARBON DIOXIDE LEVEL 28 MMOL/L (20-31); CHLORIDE LEVEL 103 MMOL/L (98-107); CREATININE FOR GFR 0.74 MG/DL (0.55-1.30); GLOMERULAR FILTRATION RATE > 60.0 (>58); GLUCOSE, FASTING 101 MG/DL (60-100); POTASSIUM SERUM 4.1 MMOL/L (3.5-5.1); SODIUM LEVEL 139 MMOL/L (136-145)
[2023-12-23 14:44] LABS: THYROID STIMULATING HORMONE 1.738 uIU/ML (0.55-4.78)
[2023-12-23 14:55] LABS: HCG, SERUM QUALITATIVE NEGATIVE (NEGATIVE)
[2023-12-23] MEDS ORDERED: MOM 30ML SUSPENSION UDC PO PRN (15:40)
[2023-12-23] MEDS ORDERED: ACETAMINOPHEN TAB 650MG DOSE (2X325MG) PO PRN (15:40)
[2023-12-23] MEDS ORDERED: diphenhydrAMINE 25MG CAP PO PRN (15:40)
[2023-12-23] MEDS ORDERED: MAALOX 30 ML SUSP *UDC PO PRN (15:40)
[2023-12-23] MEDS ORDERED: LORazepam 1 MG TAB PO PRN (15:40)
[2023-12-23] MEDS ORDERED: traZODone 50 MG TAB PO PRN (15:40)
[2023-12-23] MEDS ORDERED: OLANZapine ORAL DISINTEGRATING TAB 5MG PO PRN (15:40)
[2023-12-23] MEDS ORDERED: MAG100TA PO (16:43)
[2023-12-23] MEDS ORDERED: K2 P1TAB PO (16:43)
[2023-12-23] MEDS ORDERED: [UNRECOGNIZED DRUG - CODE] IM (16:43)
[2023-12-23] MEDS ORDERED: OYST1TAB PO (16:43)
[2023-12-23] MEDS ORDERED: GNP625TA PO (16:43)
[2023-12-23] MEDS ORDERED: ADVI200C18 PO (16:43)
[2023-12-23] MEDS ORDERED: CLIN1LOT TOP (16:43)
[2023-12-23] MEDS ORDERED: HOME MED LIST COMPLETE! XX SCH (16:45)
[2023-12-23 20:22] VITALS: BP 149/73; TEMP 98.7; O2SAT 100
[2023-12-24 06:26] VITALS: BP 136/87; TEMP 98
[2023-12-24 09:50] VITALS: BP 136/73; TEMP 97.7; O2SAT 100
[2023-12-24] MEDS: FLUoxetine 20MG CAP PO SCH (11:19)
[2023-12-24 16:04] VITALS: BP 134/71; TEMP 98.3; O2SAT 100
[2023-12-24] MEDS: OLANZapine 5 MG TAB PO SCH (21:00)
[2023-12-25 06:25] VITALS: BP 139/80; TEMP 97.6; O2SAT 98
[2023-12-25 15:36] VITALS: BP 132/77; TEMP 97.9; O2SAT 98
[2023-12-26 06:22] VITALS: BP 143/85; TEMP 97.4; O2SAT 99
[2023-12-26 15:35] VITALS: BP 118/64; TEMP 97.3; O2SAT 99
[2023-12-27 06:49] VITALS: BP 133/68; TEMP 97.1; O2SAT 99
[2023-12-27 18:00] VITALS: BP 128/72; TEMP 98.5; O2SAT 100
[2023-12-27] MEDS: IBUPROFEN 400MG TAB PO PRN (19:21)
[2023-12-28 06:26] VITALS: BP 135/67; TEMP 97.2; O2SAT 98
[2023-12-28] MEDS ORDERED: FLUO20CA22 PO (13:24)
== END 2023-12-28 16:05 | disposition home or self-care (01) | DRG 760 ==
LOC: M ED 13:00 → M ED INP 15:37 → M PSY 20:12
PROVIDERS: ADMIT Student in an Organized Health Care Education/Training Program; ATTEND Student in an Organized Health Care Education/Training Program
DX: F22 Delusional disorders (principal); F32.9 Major depressive disorder, single episode, unspecified; Z79.899 Other long term (current) drug therapy; Z63.0 Problems in relationship with spouse or partner; E28.2 Polycystic ovarian syndrome; M79.7 Fibromyalgia; E78.5 Hyperlipidemia, unspecified

== ENCOUNTER → 2024-02-28 | Outpatient (CLI) | payer MEDICAID, OTHER ==
[~2024-02-28] MED LIST changes: +ADVI200C18 PO; +CLIN1LOT TOP; +FLUO-365 PO; +GNP625TA PO; +K2 P1TAB PO; +MAG100TA PO; +OYST1TAB PO; +[UNRECOGNIZED DRUG - CODE] IM
== END ==
LOC: M WUC 14:17
PROVIDERS: ATTEND Internal Medicine Infectious Disease
DX: Z29.81 Encounter for HIV pre-exposure prophylaxis (principal)

== ENCOUNTER → 2024-08-11 | Outpatient (CLI) | payer OTHER ==
[2024-08-11 17:56] LABS: HEMATOCRIT 39.8 % (36.0-47.0); MEAN CORPUSCULAR HEMOGLOBIN 29.4 pg (27.0-33.0); MEAN CORPUSCULAR HGB CONC 32.7 g/dl (32.0-36.5); PLATELET COUNT, AUTOMATED 266 10^3/uL (150-450); RED BLOOD COUNT 4.42 10^6/uL (4.00-5.40); WHITE BLOOD COUNT 10.1 10^3/uL (4.0-10.0)
[2024-08-11 18:27] LABS: HIV 1&2 SCREEN NEGATIVE (NEGATIVE)
[2024-08-11 18:34] LABS: HEPATITIS C VIRUS ABY INDEX 0.03 INDEX (<0.8)
[2024-08-11 19:16] LABS: GC DNA AMPLIFICATION NEGATIVE (NEGATIVE)
== END ==
LOC: M PLALAB 15:04
PROVIDERS: ATTEND Specialist
DX: Z34.81 Encounter for supervision of other normal pregnancy, first trimester (principal)

== ENCOUNTER → 2024-08-11 | Outpatient (CLI) | payer OTHER ==
[2024-08-11 17:57] LABS: BASO # 0.1 10^3/uL (0.0-0.2); BASO % 0.6 % (0.0-1.0); EOS # 0.1 10^3/uL (0.0-0.5); EOS % 1.1 % (0.0-3.0); HEMATOCRIT 39.9 % (36.0-47.0); HEMOGLOBIN 12.8 g/dl (12.0-15.5); LYMPH # 2.9 10^3/uL (1.5-5.0); LYMPH % 28.8 % (24.0-44.0); MEAN CORPUSCULAR HEMOGLOBIN 28.7 pg (27.0-33.0); MEAN CORPUSCULAR HGB CONC 32.1 g/dl (32.0-36.5); MEAN CORPUSCULAR VOLUME 89.5 fl (80.0-96.0); MONO # 0.6 10^3/uL (0.0-0.8); MONO % 5.8 % (2.0-8.0); NEUTROPHILS # 6.3 10^3/uL (1.5-8.5); NEUTROPHILS % 63.2 % (36.0-66.0); PLATELET COUNT, AUTOMATED 268 10^3/uL (150-450); RED BLOOD COUNT 4.46 10^6/uL (4.00-5.40)
[2024-08-11 17:58] LABS: ALBUMIN 3.5 G/DL (3.2-5.2); ALKALINE PHOSPHATASE 70 U/L (35-104); ALT/SGPT 18 U/L (7.0-40); AST/SGOT 11 U/L (<34); BILIRUBIN,TOTAL 0.4 MG/DL (0.3-1.2); BLOOD UREA NITROGEN 8 MG/DL (9-23); CALCIUM LEVEL 9.5 MG/DL (8.5-10.1); CARBON DIOXIDE LEVEL 27 MMOL/L (20-31); CHLORIDE LEVEL 103 MMOL/L (98-107); CHOLESTEROL LEVEL 179 MG/DL (<200); CHOLESTEROL RISK RATIO 3.76 (<5); CREATININE FOR GFR 0.61 MG/DL (0.55-1.30); GLOMERULAR FILTRATION RATE > 60.0 (>58); GLUCOSE, FASTING 107 MG/DL (60-100); HDL CHOLESTEROL 47.6 MG/DL (>40); LDL CHOLESTEROL 100.4 MG/DL (<100); NON-HDL-C 131.4 MG/DL; POTASSIUM SERUM 3.5 MMOL/L (3.5-5.1); SODIUM LEVEL 141 MMOL/L (136-145); TOTAL PROTEIN 7.1 G/DL (5.7-8.2); TRIGLYCERIDES LEVEL 155 MG/DL (<150)
[2024-08-11 18:00] LABS: FREE T4 1.22 NG/DL (0.89-1.76); THYROID STIMULATING HORMONE 1.366 uIU/ML (0.55-4.78)
== END ==
LOC: M PLALAB 15:08 → M PLAIMG 15:08
PROVIDERS: ATTEND Nurse Practitioner Family
DX: R53.83 Other fatigue (principal); E78.5 Hyperlipidemia, unspecified; E55.9 Vitamin D deficiency, unspecified

== ENCOUNTER 2024-08-24 12:29 | Day surgery (SDC) | payer OTHER ==
[~2024-08-24] VITALS: Ht 162.6 cm; Wt 104.3 kg
[~2024-08-24 12:29] MED LIST changes: +ACETAMINOPHEN 1000MG/100ML IV BAG As Ordered ONE; +KETOROLAC 60MG 2ML VIAL As Ordered ONE; +LIDOCAINE 2% 100MG/5ML SDV (FOR ANES.) As Ordered ONE; +MIDAZOLAM INJ 2MG/2ML VIAL As Ordered ONE; +ONDANSETRON 4MG 2ML VIAL As Ordered ONE; +PHENYLephrine 500MCG 5ML (100MCG/ML) SYRINGE As Ordered ONE; +dexmedeTOMIDine (4MCG/ML)200MCG/50ML BTL (PRECEDEX) As Ordered ONE; +ePHEDrine SULFATE 25 MG/5 ML(5MG/ML) SYRINGE As Ordered ONE; +fentaNYL 100 MCG/2 ML INJECTION As Ordered ONE; +propofoL 200 MG/20 ML VIAL As Ordered ONE
[2024-08-24] MEDS ORDERED: NS (Normal Saline) 0.9% 1,000 ML IV SCH (12:40)
[2024-08-24] MEDS: LIDOCAINE 1% MDV 20ML VIAL As Ordered ONE (14:45)
[2024-08-24] MEDS: DOXYCYCLINE HYCLATE 100MG TABLET PO ONE (15:39)
[2024-08-24 15:57] VITALS: BP 142/76; TEMP 97.9; O2SAT 97
== END 2024-08-24 16:33 | disposition home or self-care (01) ==
LOC: M SDC 12:29
PROVIDERS: ATTEND Specialist
DX: O02.1 Missed abortion (principal); E28.2 Polycystic ovarian syndrome
CPT/HCPCS: 36415; 59820; 84702; 86850; 86900; 86901; 88305; J0131; J1100; J1885; J2250; J2371; J2405; J3010

== ENCOUNTER → 2024-09-14 | Outpatient (REF) | payer OTHER ==
[~2024-09-14] MED LIST changes: -ACETAMINOPHEN 1000MG/100ML IV BAG As Ordered ONE; -KETOROLAC 60MG 2ML VIAL As Ordered ONE; -LIDOCAINE 2% 100MG/5ML SDV (FOR ANES.) As Ordered ONE; -MIDAZOLAM INJ 2MG/2ML VIAL As Ordered ONE; -ONDANSETRON 4MG 2ML VIAL As Ordered ONE; -PHENYLephrine 500MCG 5ML (100MCG/ML) SYRINGE As Ordered ONE; -dexmedeTOMIDine (4MCG/ML)200MCG/50ML BTL (PRECEDEX) As Ordered ONE; -ePHEDrine SULFATE 25 MG/5 ML(5MG/ML) SYRINGE As Ordered ONE; -fentaNYL 100 MCG/2 ML INJECTION As Ordered ONE; -propofoL 200 MG/20 ML VIAL As Ordered ONE
== END ==
LOC: M SFHCPLAZ 17:15
PROVIDERS: ATTEND Specialist
DX: N92.6 Irregular menstruation, unspecified (principal)

== ENCOUNTER → 2025-01-17 | Outpatient (CLI) | payer OTHER ==
[2025-01-17 17:52] LABS: HCG, SERUM QUANTITATIVE < 2.6 MIU/ML (<4.2)
[2025-01-17 18:06] LABS: HEPATITIS B SURFACE ANTIGEN NEGATIVE (NEGATIVE)
[2025-01-17 18:18] LABS: HIV 1&2 SCREEN NEGATIVE (NEGATIVE)
[2025-01-17 18:26] LABS: HEPATITIS C VIRUS ABY INDEX 0.05 INDEX (<0.8)
[2025-01-19 13:07] LABS: HPV APTIMA Not Detected (Not Detected)
== END ==
LOC: M PLALAB 14:36
PROVIDERS: ATTEND Advanced Practice Midwife
DX: Z12.4 Encounter for screening for malignant neoplasm of cervix (principal)

== ENCOUNTER → 2025-01-17 | Outpatient (CLI) | payer OTHER | LOC: M WHC 13:22 | PROVIDERS: ATTEND Advanced Practice Midwife | DX: Z12.31 Encounter for screening mammogram for malignant neoplasm of breast (principal) ==

== ENCOUNTER → 2025-01-17 | Outpatient (CLI) | payer OTHER ==
[2025-01-17 17:28] LABS: BASO % 0.5 % (0.0-1.0); EOS # 0.1 10^3/uL (0.0-0.5); EOS % 0.6 % (0.0-3.0); HEMATOCRIT 39.4 % (36.0-47.0); HEMOGLOBIN 12.9 g/dl (12.0-15.5); LYMPH # 2.5 10^3/uL (1.5-5.0); LYMPH % 29.8 % (24.0-44.0); MEAN CORPUSCULAR HEMOGLOBIN 29.2 pg (27.0-33.0); MEAN CORPUSCULAR HGB CONC 32.7 g/dl (32.0-36.5); MEAN CORPUSCULAR VOLUME 89.1 fl (80.0-96.0); MONO # 0.5 10^3/uL (0.0-0.8); NEUTROPHILS # 5.3 10^3/uL (1.5-8.5); NEUTROPHILS % 62.7 % (36.0-66.0); PLATELET COUNT, AUTOMATED 280 10^3/uL (150-450); RED BLOOD COUNT 4.42 10^6/uL (4.00-5.40); WHITE BLOOD COUNT 8.5 10^3/uL (4.0-10.0)
[2025-01-17 17:56] LABS: ALKALINE PHOSPHATASE 66 U/L (35-104); ALT/SGPT 27 U/L (7.0-40); AST/SGOT 55 U/L (<34); BILIRUBIN,TOTAL 0.4 MG/DL (0.3-1.2); BLOOD UREA NITROGEN 15 MG/DL (9-23); CARBON DIOXIDE LEVEL 28 MMOL/L (20-31); CHLORIDE LEVEL 103 MMOL/L (98-107); CHOLESTEROL LEVEL 217 MG/DL (<200); CHOLESTEROL RISK RATIO 3.92 (<5); FREE T4 1.27 NG/DL (0.89-1.76); GLOMERULAR FILTRATION RATE > 90.0 (>58); GLUCOSE, FASTING 87 MG/DL (60-100); HDL CHOLESTEROL 55.3 MG/DL (>40); LDL CHOLESTEROL 111.5 MG/DL (<100); NON-HDL-C 161.7 MG/DL; SODIUM LEVEL 136 MMOL/L (136-145); THYROID STIMULATING HORMONE 1.645 uIU/ML (0.55-4.78); TOTAL PROTEIN 6.8 G/DL (5.7-8.2); TRIGLYCERIDES LEVEL 251 MG/DL (<150); VITAMIN B12 LEVEL 379 PG/ML (211-911)
== END ==
LOC: M PLALAB 14:33
PROVIDERS: ATTEND Nurse Practitioner Family
DX: E55.9 Vitamin D deficiency, unspecified (principal)

== ENCOUNTER → 2025-06-26 | Outpatient (CLI) | payer OTHER ==
[~2025-06-26] MED LIST changes: -IBUP-1022 PO; +IBUP600T42 PO
[2025-06-26 17:42] LABS: BASO # 0.1 10^3/uL (0.0-0.2); BASO % 0.6 % (0.0-1.0); EOS # 0.1 10^3/uL (0.0-0.5); EOS % 1.4 % (0.0-3.0); LYMPH # 2.6 10^3/uL (1.5-5.0); LYMPH % 31.0 % (24.0-44.0); MONO # 0.4 10^3/uL (0.0-0.8); MONO % 4.8 % (2.0-8.0); NEUTROPHILS # 5.1 10^3/uL (1.5-8.5); NEUTROPHILS % 61.8 % (36.0-66.0); PLATELET COUNT, AUTOMATED 282 10^3/uL (150-450)
[2025-06-26 18:05] LABS: FREE T4 1.21 NG/DL (0.89-1.76)
[2025-06-26 18:11] LABS: ALT/SGPT 18 U/L (7.0-40); AST/SGOT 17 U/L (<34); CALCIUM LEVEL 9.8 MG/DL (8.5-10.1); CARBON DIOXIDE LEVEL 28 MMOL/L (20-31); CHLORIDE LEVEL 105 MMOL/L (98-107); CHOLESTEROL LEVEL 229 MG/DL (<200); CHOLESTEROL RISK RATIO 4.91 (<5); CREATININE FOR GFR 0.76 MG/DL (0.55-1.30); GLOMERULAR FILTRATION RATE > 90.0 (>58); LDL CHOLESTEROL 141.2 MG/DL (<100); NON-HDL-C 182.4 MG/DL; POTASSIUM SERUM 4.6 MMOL/L (3.5-5.1); SODIUM LEVEL 144 MMOL/L (136-145); TRIGLYCERIDES LEVEL 206 MG/DL (<150)
[2025-06-26 18:13] LABS: VITAMIN B12 LEVEL 951 PG/ML (211-911)
[2025-06-26 18:15] LABS: PTH INTACT 11.5 PG/ML (18.5-88.0)
[2025-06-26 18:17] LABS: TOTAL 25(OH) VITAMIN D > 150.0 NG/ML (20.0-100.0)
== END ==
LOC: M PLALAB 16:39
PROVIDERS: ATTEND Nurse Practitioner Family
DX: E55.9 Vitamin D deficiency, unspecified (principal); E53.8 Deficiency of other specified B group vitamins; R53.83 Other fatigue; E78.5 Hyperlipidemia, unspecified